=== PATIENT | female | born 1950 | race Two or more races ===

== ENCOUNTER → 2016-12-28 | Outpatient (CLI) | payer OTHER ==
--- NOTE | ~2016-12-28 | CR170 ---
[facility] A Service of [facility] & [facility] RADIOLOGY TEXT RESULTS PATIENT: BORIS JASON LOCATION: [facility] : 48 UNIT #: [id number] AGE: [address]: FAVIOLA Man APRN SEX: F ORDER DR: [id number] [facility] [address] [place], [place] [address] [id number] O MR#: [id number] Acc #: [id number] NAME: BORIS JASON : 1950 SEX: F STUDY DATE/TIME: 12/28/2016 13:35 UNIT: [facility] ROOM: STUDY DESCRIPTION: CR Knee 2 Views Rt Attending Physician: Faviola Haddad Aprn Referring Physician: Faviola Haddad Aprn Ordering Physician: Faviola Haddad Aprn Primary Care Physician: Faviola Haddad Aprn MEDICAL IMAGING REPORT This report is preliminary unless electronic signature is present EXAM Right knee 2 views 12/28/2016. HISTORY Right knee pain for 2 months with no known injury. FINDINGS 2 views of the right knee demonstrate no fracture. The bones are normally mineralized and the joint space is normally maintained. There is a small knee joint effusion. IMPRESSION Small knee joint effusion. No evidence of fracture. Dictated by... Breezy Garcia M.D. THIS IS AN ELECTRONICALLY VERIFIED REPORT Breezy Garcia M.D. at 12/29/2016 2:15 PM KRT/gz TD: 12/29/2016 09:22 JOB #: [id number] MEDICAL IMAGING REPORT Page 1 of 1 COPY
--- NOTE | ~2016-12-28 | US5 ---
[facility] A Service of [facility] RADIOLOGY TEXT RESULTS PATIENT: BORIS JASON LOCATION: [facility] : 48 UNIT #: [id number] AGE: [address]: FAVIOLA Man APRN SEX: F ORDER DR: [id number] [facility] [address]. [place], [place] [address] [id number] O MR#: [id number] Acc #: [id number] NAME: BORIS JASON : 1950 SEX: F STUDY DATE/TIME: 12/28/2016 11:02 UNIT: [facility] ROOM: STUDY DESCRIPTION: US Abdominal Complete Attending Physician: Faviola Man Referring Physician: Faviola Man Ordering Physician: Faviola Haddad Aprn Primary Care Physician: Faviola Man MEDICAL IMAGING REPORT This report is preliminary unless electronic signature is present EXAM Complete abdominal ultrasound DATE: 12/28/2016 HISTORY Abnormal elevated liver function test. COMPARISON None. FINDINGS Pancreas is partially obscured by bowel gas but the visualized pancreas appears normal. Intrahepatic IVC demonstrates normal color and spectral Doppler flow. The caliber of the abdominal aorta is within normal limits, without aneurysm, and color and spectral Doppler flow is seen throughout the abdominal aorta. There is mild atherosclerotic plaquing, particularly in the mid abdominal aorta. The liver demonstrates a coarsened echotexture with diminished acoustic transmission which may reflect features of hepatic steatosis but no focal liver lesion is identified. Common bile duct caliber is normal, 4 mm. No dilated biliary ductal dilation is seen. Right kidney measures 9.3 cm in length without focal cortical lesion, shadowing stone or hydronephrosis. The gallbladder appears free of shadowing stone or sludge, no abnormal gallbladder wall thickening or pericholecystic fluid is seen. The left kidney measures 8.5 cm in length without focal cortical lesion, shadowing stone or hydronephrosis. Spleen size is normal measuring about 8.9 cm. No ascites is seen. IMPRESSION 1. Coarsened hepatic echotexture may reflect changes of hepatic STS. [facility] A Service of [facility] RADIOLOGY TEXT RESULTS PATIENT: BORIS JASON [facility] #: [id number] : 46 UNIT #: [id number] AGE: [address]: FAVIOLA Man, W[employer] P[employer] M[employer]ER SEX: F ORDER DR: steatosis. No focal liver lesion. 2. Normal gallbladder. No abnormal biliary dilation. 3. Mild atherosclerotic disease in the mid abdominal aorta. 4. Remainder of examination is within normal limits. Dictated by... Kika Paulino M.D. THIS IS AN ELECTRONICALLY VERIFIED REPORT Kika Paulino M.D. at 12/31/2016 8:52 AM REDD/robbi TD: 12/29/2016 02:05 JOB #: [id number] MEDICAL IMAGING REPORT Page 1 of 1 COPY
--- NOTE | ~2016-12-28 | CR169 ---
[facility] A Service of [facility] & [facility] RADIOLOGY TEXT RESULTS PATIENT: BORIS JASON LOCATION: [facility] : 46 UNIT #: [id number] AGE: [address]: FAVIOLA Man APRN SEX: F ORDER DR: [id number] [facility] [address] [place], [place] [address] [id number] O MR#: [id number] Acc #: [id number] NAME: BORIS JASON : 1950 SEX: F STUDY DATE/TIME: 12/28/2016 13:35 UNIT: [facility] ROOM: STUDY DESCRIPTION: CR Knee 2 Views Lt Attending Physician: Faviola Haddad Aprn Referring Physician: Faviola Haddad Aprn Ordering Physician: Faviola Haddad Aprn Primary Care Physician: Faviola Haddad Aprn MEDICAL IMAGING REPORT This report is preliminary unless electronic signature is present EXAM Left knee 2 views 12/28/2016 HISTORY Left knee pain for 2 months with no known injury. FINDINGS AP and lateral projection of the knee shows smooth articular anatomy without indication of fracture or dislocation at the major weight-bearing surface of the knee. There is no indication of radiopaque foreign body about the knee surface or joint effusion. IMPRESSION Normal knee. Dictated by... Breezy Garcia M.D. THIS IS AN ELECTRONICALLY VERIFIED REPORT Breezy Garcia M.D. at 12/29/2016 2:15 PM KRT/tano TD: 12/29/2016 10:14 JOB #: [id number] MEDICAL IMAGING REPORT Page 1 of 1 COPY
--- NOTE | ~2016-12-28 | CR181 ---
[facility] A Service of [facility] & [facility] RADIOLOGY TEXT RESULTS PATIENT: BORIS JASON LOCATION: [facility] : 46 UNIT #: [id number] AGE: [address]: FAVIOLA Man APRN SEX: F ORDER DR: [id number] [facility] [address] [place], [place] [address] [id number] O MR#: [id number] Acc #: [id number] NAME: BORIS JASON : 1950 SEX: F STUDY DATE/TIME: 12/28/2016 13:33 UNIT: [facility] ROOM: STUDY DESCRIPTION: CR Lumbar Spine 2 or 3 Views Attending Physician: Faviola Haddad Aprn Referring Physician: Faviola Haddad Aprn Ordering Physician: Faviola Haddad Aprn Primary Care Physician: Faviola Haddad Aprn MEDICAL IMAGING REPORT This report is preliminary unless electronic signature is present EXAM Lumbar spine 3 views 12/28/2016 HISTORY Low back pain with bilateral lower extremity radiculopathy into bilateral knees for 2 months. No known injury. FINDINGS 3 views of the lumbar spine demonstrate no fracture. The posterior vertebral body line is intact and there is no anterolisthesis or retrolisthesis. The disc spaces are normally maintained. Small anterior osteophytes are seen from L2-L5. There is mild degenerative change involving the articular facets. IMPRESSION Minimal degenerative change lumbar spine. No acute abnormality. Dictated by... Breezy Garcia M.D. THIS IS AN ELECTRONICALLY VERIFIED REPORT Breezy Garcia M.D. at 12/29/2016 2:15 PM ASIYA/tano TD: 12/29/2016 09:58 JOB #: [id number] MEDICAL IMAGING REPORT Page 1 of 1 COPY
== END | disposition home or self-care (01) ==
LOC: CGUS 10:21 → CRAD 10:21 → CGUS 10:30
DX: R94.5 Abnormal results of liver function studies (principal); M51.16 Intervertebral disc disorders with radiculopathy, lumbar region; M25.561 Pain in right knee; M25.562 Pain in left knee; K76.89 Other specified diseases of liver; I70.0 Atherosclerosis of aorta; M25.461 Effusion, right knee
CPT/HCPCS: 72100; 73560; 76700